=== PATIENT | male | born 1945 | race Caucasian/White ===

== ENCOUNTER 2017-11-16 18:44 | Emergency (ER) | payer MEDICARE ==
[~2017-11-16] VITALS: Ht 175.2 cm; Wt 81.6 kg
[~2017-11-16 18:44] MED LIST: OMEPRAZOLE40 MG PO; SIMVASTATIN20 MG PO
[2017-11-16] MEDS ORDERED: ZYRTEC10 MG PO (19:23)
[2017-11-16] MEDS ORDERED: MEDROL DOSEPAK4 MG PO (19:23)
== END 2017-11-16 19:30 | disposition home or self-care (01) ==
LOC: ED 18:44
DX: T63.441A Toxic effect of venom of bees, accidental (unintentional), initial encounter (principal); R20.0 Anesthesia of skin; F17.200 Nicotine dependence, unspecified, uncomplicated; Z91.030 Bee allergy status; Z79.899 Other long term (current) drug therapy; Y92.89 Other specified places as the place of occurrence of the external cause

== ENCOUNTER → 2023-12-08 | Outpatient (CLI) | payer MEDICARE ==
[~2023-12-08] MED LIST changes: +MEDROL DOSEPAK4 MG PO; +ZYRTEC10 MG PO
== END | disposition home or self-care (01) ==
LOC: CARD 11:51
PROVIDERS: ATTEND Internal Medicine Cardiovascular Disease
DX: Z01.810 Encounter for preprocedural cardiovascular examination (principal); I08.0 Rheumatic disorders of both mitral and aortic valves; I71.40 Abdominal aortic aneurysm, without rupture, unspecified

== ENCOUNTER → 2024-08-19 | Outpatient (CLI) | payer MEDICARE | END | disposition home or self-care (01) | LOC: US 01:10 | PROVIDERS: ATTEND Internal Medicine Cardiovascular Disease | DX: I65.23 Occlusion and stenosis of bilateral carotid arteries (principal); I71.40 Abdominal aortic aneurysm, without rupture, unspecified; I70.203 Unspecified atherosclerosis of native arteries of extremities, bilateral legs ==